=== PATIENT | male | born 1970 | race Caucasian/White ===

== ENCOUNTER 2017-09-24 09:59 | Observation (INO) | payer SELFPAY ==
[~2017-09-24] VITALS: Ht 185.4 cm; Wt 127.0 kg
[2017-09-24] VITALS (11 sets, daily range): BP systolic 121–181; BP diastolic 69–95; PULSE 49–90; RESP 18–22; TEMP 98.1–98.9; O2SAT 95–99
--- NOTE | 2017-09-24 11:21 | RADRPT ---
EXAM DATE/TIME: 09/24/2017 10:55 [place] COMPARISON: No previous studies available for comparison. INDICATIONS : Shortness of breath, cough, and chest pain. MEDICAL HISTORY : Smoker. SURGICAL HISTORY : None. ENCOUNTER: Initial ACUITY: 1 day PAIN SCORE: 0/10 LOCATION: Bilateral chest FINDINGS: PA and lateral views of the chest demonstrate the lungs to be symmetrically aerated without evidence of mass, infiltrate or effusion. Cardiac silhouette is mildly prominent left ventricular configurati on.. Osseous structures are intact. CONCLUSION: Mildly prominent cardiac silhouette without infiltrate or failure. Alvino Patel MD FACR on September 24, 2017 at 11:07 Board Certified Radiologist. This report was verified electronically.
[2017-09-24] MEDS: NITROGLYCERIN 0.4 MG SL 25 TABS/BTL SL SCH ×3 (11:26→11:40)
[2017-09-24] MEDS ORDERED: MORPHINE SULFATE 4 MG/ML INJ IV PUSH ONE (11:30)
[2017-09-24] MEDS ORDERED: SODIUM CHLORID 0.9% 500 ML INJ 500 ML IV ONE (11:30)
[2017-09-24] MEDS ORDERED: ASPIRIN 81 MG CHEW TAB PO ONE (11:30)
[2017-09-24] MEDS ORDERED: SODIUM CHLORIDE 0.9% FLUSH 10 ML FLUSH IVF PRN (11:30)
--- NOTE | 2017-09-24 11:54 | PD ---
HPI Chief Complaint: Chest Pain Time Seen by Provider: 11:14 Travel History International Travel<30 days: No Contact w/Intl Traveler<30days: No Traveled to known affect area: No History of Present Illness HPI 47-year-old male presents the emergency department with 3 day history of substernal chest discomfort, tightness, radiating into his back. Patient also facial pain, different than typical sinus pressure. He states the pain is been fairly consistent for the last 3 days. He denies fever, chills, but has had some cough. He denies sore throat or ear pain. No nausea vomiting or diarrhea. Patient does smoke occasionally maybe 2 packs every 2 weeks.. He denies significant alcohol use. He has no previous cardiac history. He does not take aspirin or other medications. Patient denies specific changes in his discomfort with exertion or food intake. His current pain is about a 6/10. He has no known drug allergies. PFSH Past Medical History Hypertension: Yes Social History Alcohol Use: No Tobacco Use: Yes Substance Use: No Allergies-Medications (Allergen,Severity, Reaction): Coded Allergies: No Known Allergies (Unverified , 09/24/17) Reported Meds & Prescriptions Reported Meds & Active Scripts Active No Active Prescriptions or Reported Medications Review of Systems Except as stated in HPI: all other systems reviewed are Neg General / Constitutional: No: Fever, Chills Eyes: No: Visual changes HENT: No: Headaches Cardiovascular: Positive: Chest Pain or Discomfort, Dyspnea on exertion, No: Palpitations, Irregular Rhythm, Tachycardia, Syncope, Varicosities (in the last 3 days.), Edema, Cyanosis, Varicosities, Phlebitis, Claudication Respiratory: Positive: Cough, No: Shortness of Breath, Wheezing, Orthopnea, Hemoptysis Gastrointestinal: No: Nausea, Vomiting, Diarrhea, Abdominal Pain Genitourinary: No: Dysuria Musculoskeletal: No: Pain Skin: No Rash Neurologic: No: Weakness Psychiatric: No: Depression Endocrine: No: Polydipsia Hematologic/Lymphatic: No: Easy Bruising Physical Exam Narrative GENERAL: Patient appears in no obvious distress. SKIN: Warm and dry. Normal color. Normal turgor. No diaphoresis. HEAD: Atraumatic. Normocephalic. EYES: Pupils equal and round. No scleral icterus. No injection or drainage. ENT: No nasal bleeding or discharge. Mucous membranes pink and moist. TMs are clear bilaterally. No significant sinus discharge or tenderness with palpation or percussion. Posterior pharynx appears unremarkable. Airway is patent. NECK: Trachea midline. No JVD. Neck is supple nontender. CARDIOVASCULAR: Regular rate and rhythm. No murmurs gallops or rubs appreciated. RESPIRATORY: No accessory muscle use. Clear to auscultation. Breath sounds equal bilaterally. GASTROINTESTINAL: Abdomen soft, non-tender, nondistended. Hepatic and splenic margins not palpable. MUSCULOSKELETAL: Extremities without clubbing, cyanosis, or edema. No obvious deformities. NEUROLOGICAL: Awake and alert. No obvious cranial nerve deficits. Motor grossly within normal limits. Five out of 5 muscle strength in the arms and legs. Normal speech. PSYCHIATRIC: Appropriate mood and affect; insight and judgment normal. Data Data Last Documented VS Vital Signs Date Time Temp Pulse Resp B/P (MAP) Pulse Ox O2 Delivery O2 Flow Rate FiO2 09/24/17 11:31 75 19 156/73 (100) 99 09/24/17 11:16 Room Air 09/24/17 10:00 98.8 Orders Orders Electrocardiogram (09/24/17 ) Complete Blood Count With Diff (09/24/17 10:43) Ckmb (Isoenzyme) Profile (09/24/17 10:43) Troponin I (09/24/17 10:43) Iv Access Insert/Monitor (09/24/17 10:43) Ecg Monitoring (09/24/17 10:43) Oxygen Administration (09/24/17 10:43) Oximetry (09/24/17 10:43) Chest, Pa & Lat (09/24/17 10:43) B-Type Natriuretic Peptide (09/24/17 11:17) Ckmb (Isoenzyme) Profile (09/24/17 11:17) Comprehensive Metabolic Panel (09/24/17 11:17) Magnesium (Mg) (09/24/17 11:17) Prothrombin Time / Inr (Pt) (09/24/17 11:17) Act Partial Throm Time (Ptt) (09/24/17 11:17) Troponin I (09/24/17 11:17) Bilateral Bp Monitoring (09/24/17 11:17) Aspirin Chew (Aspirin Chew) (09/24/17 11:30) Morphine Inj (Morphine Inj) (09/24/17 11:30) Sodium Chloride 0.9% Flush (Ns Flush) (09/24/17 11:30) Nitroglycerin Sl (Nitrostat Sl) (09/24/17 11:30) Sodium Chlorid 0.9% 500 Ml Inj (Ns 500 M (09/24/17 11:30) CKMB (09/24/17 11:35) CKMB% (09/24/17 11:35) Admit Order (Ed Use Only) (09/24/17 12:50) Labs Laboratory Tests Test 09/24/17 11:35 White Blood Count 8.4 TH/MM3 Red Blood Count 4.66 MIL/MM3 Hemoglobin 14.0 GM/DL Hematocrit 42.3 % Mean Corpuscular Volume 90.7 FL Mean Corpuscular Hemoglobin 30.1 PG Mean Corpuscular Hemoglobin Concent 33.2 % Red Cell Distribution Width 13.2 % Platelet Count 254 TH/MM3 Mean Platelet Volume 9.0 FL Neutrophils (%) (Auto) 60.6 % Lymphocytes (%) (Auto) 28.0 % Monocytes (%) (Auto) 9.7 % Eosinophils (%) (Auto) 1.1 % Basophils (%) (Auto) 0.6 % Neutrophils # (Auto) 5.1 TH/MM3 Lymphocytes # (Auto) 2.4 TH/MM3 Monocytes # (Auto) 0.8 TH/MM3 Eosinophils # (Auto) 0.1 TH/MM3 Basophils # (Auto) 0.0 TH/MM3 CBC Comment DIFF FINAL Differential Comment Prothrombin Time 10.0 SEC Prothromb Time International Ratio 1.0 RATIO Activated Partial Thromboplast Time 27.1 SEC Blood Urea Nitrogen 15 MG/DL Creatinine 1.15 MG/DL Random Glucose 94 MG/DL Total Protein 7.6 GM/DL Albumin 3.8 GM/DL Calcium Level 8.9 MG/DL Magnesium Level 2.1 MG/DL Alkaline Phosphatase 101 U/L Aspartate Amino Transf (AST/SGOT) 17 U/L Alanine Aminotransferase (ALT/SGPT) 26 U/L Total Bilirubin 0.4 MG/DL Sodium Level 139 MEQ/L Potassium Level 3.8 MEQ/L Chloride Level 104 MEQ/L Carbon Dioxide Level 27.1 MEQ/L Anion Gap 8 MEQ/L Estimat Glomerular Filtration Rate 68 ML/MIN Total Creatine Kinase 112 U/L Creatine Kinase MB 0.9 NG/ML Troponin I LESS THAN 0.02 NG/ML B-Type Natriuretic Peptide 8 PG/ML MDM Medical Decision Making Medical Screen Exam Complete: Yes Emergency Medical Condition: Yes Medical Record Reviewed: Yes Differential Diagnosis Atypical chest pain. Esophageal spasm. Cardiac syndrome. Non-STEMI. Narrative Course Patient is medically stable at time of exam. Labs ordered including CBC, CMP, cardiac panel, and EKG chest x-ray ordered. IV access is obtained patient is given 2 mg morphine IV. Patient is given 324 mg aspirin by mouth. Patient is given nitroglycerin 0.4 mg sublingual 3 with improvement of his symptoms. Patient is reassessed after medications and found to have pain described as 1/ 10 down from 6/10. Labs show unremarkable CBC, coagulations normal. CMP shows no significant findings. First troponin is 0.02. Chest x-ray is unremarkable per radiologist. Discussed findings with the patient and recommended admission to the chest pain center for further observation and workup per cardiology consult. Patient agrees. Patient admitted to the chest pain center. Diagnosis Primary Impression: Chest pain at rest Admitting Information Admitting Physician Requests: Observation Scripts No Active Prescriptions or Reported Meds Condition: Stable Amol Armas Sep 24, 2017 11:54
[2017-09-24 12:07] LABS: AUTOMATED NEUTROPHIL # 5.1 TH/MM3 (1.8-7.7); BASOPHIL % 0.6 % (0.0-2.0); EOSINOPHIL # 0.1 TH/MM3 (0-0.4); EOSINOPHIL % 1.1 % (0.0-4.0); HEMATOCRIT 42.3 % (39.0-51.0); LYMPHOCYTE # 2.4 TH/MM3 (1.0-4.8); MEAN CELL VOLUME 90.7 FL (80.0-100.0); MEAN CORPUSCULAR HEMOGLOBIN 30.1 PG (27.0-34.0); MEAN CORPUSCULAR HGB CONC 33.2 % (32.0-36.0); MONO % 9.7 % (0.0-8.0); MONOCYTE # 0.8 TH/MM3 (0-0.9); NEUT % 60.6 % (16.0-70.0); PLATELET COUNT 254 TH/MM3 (150-450); RED BLOOD COUNT 4.66 MIL/MM3 (4.50-5.90); RED CELL DISTRIBUTION WIDTH 13.2 % (11.6-17.2); WHITE BLOOD COUNT 8.4 TH/MM3 (4.0-11.0)
[2017-09-24 12:32] LABS: ALBUMIN 3.8 GM/DL (3.4-5.0); AST (GOT) 17 U/L (15-37); BICARBONATE 27.1 MEQ/L (21.0-32.0); CALCIUM 8.9 MG/DL (8.5-10.1); CHLORIDE 104 MEQ/L (98-107); CREATININE 1.15 MG/DL (0.60-1.30); GLOMERULAR FILTRATION RATE 68 ML/MIN (>89); MAGNESIUM 2.1 MG/DL (1.5-2.5); SODIUM (NA) 139 MEQ/L (136-145)
[2017-09-24 12:35] LABS: BLOOD UREA NITROGEN 15 MG/DL (7-18); GLUCOSE,RANDOM 94 MG/DL (74-106)
[2017-09-24 12:46] LABS: ALKALINE PHOSPHATASE 101 U/L (45-117); ALT (GPT) 26 U/L (12-78); TOTAL BILIRUBIN ADULT 0.4 MG/DL (0.2-1.0); TOTAL PROTEIN 7.6 GM/DL (6.4-8.2); TROPONIN I LESS THAN 0.02 NG/ML (0.02-0.05)
[2017-09-24] MEDS ORDERED: ACETAMINOPHEN 500 MG CPLT PO PRN (13:30)
[2017-09-24] MEDS ORDERED: ONDANSETRON HCL 4 MG/2 ML VIAL IV PUSH PRN (13:30)
[2017-09-24] MEDS ORDERED: NITROGLYCERIN 0.4 MG SL 25 TABS/BTL SL PRN (13:30)
[2017-09-24 15:41] LABS: TROPONIN I LESS THAN 0.02 NG/ML (0.02-0.05)
--- NOTE | 2017-09-24 16:42 | HHI.HP ---
HPI Primary Care Physician No Primary Care Physician Chief Complaint Dyspnea and chest pressure History of Present Illness 47-year-old male without past medical history presents to emergency room for further evaluation of dyspnea and chest pressure. Onset 3 days ago. Location substernal. No radiation. Characterized as pressure and "feels like I can't take a deep breath." Duration constant 3 days. No associated symptoms of nausea, vomiting, or diaphoresis. Does not necessarily hurt to take a deep breath. No known precipitating or relieving factors. Endorses currently he is under a lot of work related stress. Denies similar pain in the past. Current non productive cough. Review of Systems General: No fatigue,weakness, fever, chills, recent illness HEENT: No PERDOMO, no vision changes, no nasal congestion or drainage, no dysphasia CV: Continues to have chest pressure as stated above. No palpitations. Chest pressure not made worse with exertion. RESP: Feels like "I cannot take a deep breath." Dyspnea made worse after walking long distances. 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 Current nonproductive cough. No wheeze. Current smoker. GI: No nausea, vomiting, or bowel changes. No unintentional weight gain or weight loss : No dysuria, urgency, frequency EXT: No lower leg edema, no paraesthesias MS: No discomfort or change in ROM, no recent injury, trauma NEURO: No change in memory, LOC, motor/sensory deficits PSYCH: No anxiety or depression. Endorses current situational work-related stress. SKIN: No rashes, no concerning lesions Past Family Social History Allergies: Coded Allergies: No Known Allergies (Unverified , 09/24/17) Past Medical History None Reported Medications Reported Meds & Active Scripts Active No Active Prescriptions or Reported Medications Active Ordered Medications Current Medications Medications (Trade) Dose Ordered Sig/Gavin Route Start Time Stop Time Status Last Admin (NS Flush) 2 ml UNSCH PRN IVF 09/24/17 11:30 (NS Flush) 2 ml BID IV FLUSH 09/24/17 21:00 (Tylenol) 500 mg Q4H PRN PO 09/24/17 13:30 (Zofran Inj) 4 mg Q6H PRN IV PUSH 09/24/17 13:30 (Nitrostat Sl) 0.4 mg Q5M PRN SL 09/24/17 13:30 09/24/17 14:25 (Aspirin) 325 mg DAILY PO 09/25/17 09:00 Family History Noncontributory for early onset cardiovascular disease. Social History No known hypertension, hyperlipidemia, or diabetes. Current smoker one pack cigarettes/2-3weeks. Occasional alcohol. 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 Past cardiac testing None Physical Exam Vital Signs Vital Signs Date Time Temp Pulse Resp B/P (MAP) Pulse Ox O2 Delivery O2 Flow Rate FiO2 09/24/17 15:13 09/24/17 14:28 70 22 147/69 (95) 99 Room Air 09/24/17 13:00 64 20 141/72 (95) 99 Room Air 09/24/17 11:31 75 19 156/73 (100) 99 09/24/17 11:16 70 18 99 Room Air 09/24/17 11:15 99 Room Air 09/24/17 11:15 99 Room Air 09/24/17 10:00 98.8 82 20 167/91 (116) 98 Room Air Physical Exam GENERAL: Alert WN, WD, NAD, pleasant, male HEAD: NC, AT NECK: Supple, no masses, trachea midline CV: RRR, without murmur, rub, gallop, no JVD, S1-S2 no S3-S4. RESP: Clear lungs throughout bilateral, no crackles, wheeze, rhonchi, symmetrical chest rise, nonlabored, able to speak in full sentences ABD: Soft, NT, ND, no masses, positive bowel tones EXT: Pulses +24, no dependent edema MS: Normal tone 4 extremities, nontender, no obvious deformities, full range of motion NEURO: CN II through CN XII grossly intact, motor strength 5/5 PSYCH: A+O 3, pleasant affect, appropriate speech, mood, insight and judgment SKIN: Normal turgor, normal texture, no lesions, no rashes, brisk cap refill, even hair distribution, multiple tattoos Laboratory Laboratory Tests Test 09/24/17 11:35 09/24/17 15:03 White Blood Count 8.4 Red Blood Count 4.66 Hemoglobin 14.0 Hematocrit 42.3 Mean Corpuscular Volume 90.7 Mean Corpuscular Hemoglobin 30.1 Mean Corpuscular Hemoglobin Concent 33.2 Red Cell Distribution Width 13.2 Platelet Count 254 Mean Platelet Volume 9.0 Neutrophils (%) (Auto) 60.6 Lymphocytes (%) (Auto) 28.0 Monocytes (%) (Auto) 9.7 Eosinophils (%) (Auto) 1.1 Basophils (%) (Auto) 0.6 Neutrophils # (Auto) 5.1 Lymphocytes # (Auto) 2.4 Monocytes # (Auto) 0.8 Eosinophils # (Auto) 0.1 Basophils # (Auto) 0.0 CBC Comment DIFF FINAL Differential Comment Prothrombin Time 10.0 Prothromb Time International Ratio 1.0 Activated Partial Thromboplast Time 27.1 Blood Urea Nitrogen 15 Creatinine 1.15 Random Glucose 94 Total Protein 7.6 Albumin 3.8 Calcium Level 8.9 Magnesium Level 2.1 Alkaline Phosphatase 101 Aspartate Amino Transf (AST/SGOT) 17 Alanine Aminotransferase (ALT/SGPT) 26 Total Bilirubin 0.4 Sodium Level 139 Potassium Level 3.8 Chloride Level 104 Carbon Dioxide Level 27.1 Anion Gap 8 Estimat Glomerular Filtration Rate 68 Total Creatine Kinase 112 103 Creatine Kinase MB 0.9 0.7 Troponin I LESS THAN 0.02 LESS THAN 0.02 B-Type Natriuretic Peptide 8 Result Diagram: 09/24/17 1135 09/24/17 1135 Imaging Last 48 hours Impressions Chest X-Ray 09/24/17 1043 Signed Impressions: Service Date/Time: Sunday, September 24, 2017 10:55 - CONCLUSION: Mildly prominent cardiac silhouette without infiltrate or failure. Alvino Patel MD FACR Course EKG Normal sinus rhythm, normal axis, T-wave inversions inferiorly, no ST changes Caprini VTE Risk Assessment Caprini VTE Risk Assessment: No/Low Risk (score <= 1) Caprini Risk Assessment Model Point Value = 1 Point Value = 2 Point Value = 3 Point Value = 5 Age 41-60 Minor surgery BMI > 25 kg/m2 Swollen legs Varicose veins or History of unexplained or recurrent spontaneous Oral contraceptives or hormone replacement Sepsis (< 1 month) Serious lung disease, including pneumonia (< 1 month) Abnormal pulmonary function Acute myocardial infarction Congestive heart failure (< 1 month) History of inflammatory bowel disease Medical patient at bed rest Age 61-74 Arthroscopic surgery Major open surgery (> 45 min) Laparoscopic surgery (> 45 min) Malignancy Confined to bed (> 72 hours) Immobilizing plaster cast Central venous access Age >= 75 History of VTE Family history of VTE Factor V Leiden Prothrombin [id number] Lupus anticoagulant Anticardiolipin antibodies Elevated serum homocysteine Heparin-induced thrombocytopenia Other congenital or acquired thrombophilia Stroke (< 1 month) Elective arthroplasty Hip, pelvis, or leg fracture Acute spinal cord injury (< 1 month) Prophylaxis Regimen Total Risk Factor Score Risk Level Prophylaxis Regimen 0-1 Low Early ambulation 2 Moderate Order ONE of the following: *Sequential Compression Device (SCD) *Heparin 5000 units SQ BID 3-4 Higher Order ONE of the following medications: *Heparin 5000 units SQ TID *Enoxaparin/Lovenox 40 mg SQ daily (WT < 150 kg, CrCl > 30 mL/min) *Enoxaparin/Lovenox 30 mg SQ daily (WT < 150 kg, CrCl > 10-29 mL/min) *Enoxaparin/Lovenox 30 mg SQ BID (WT < 150 kg, CrCl > 30 mL/min) AND/OR *Sequential Compression Device (SCD) 5 or more Highest Order ONE of the following medications: *Heparin 5000 units SQ TID (Preferred with Epidurals) *Enoxaparin/Lovenox 40 mg SQ daily (WT < 150 kg, CrCl > 30 mL/min) *Enoxaparin/Lovenox 30 mg SQ daily (WT < 150 kg, CrCl > 10-29 mL/min) *Enoxaparin/Lovenox 30 mg SQ BID (WT < 150 kg, CrCl > 30 mL/min) AND *Sequential Compression Device (SCD) Assessment and Plan Assessment and Plan #1 Atypical chest pain-admitted chest pain center. Rule out with 3 sets of EKGs , cardiac enzymes, and monitored overnight. Seen and evaluated by Dr. Carlos Cantrell. Stat d-dimer. If d-dimer and serial cardiac protocol, plan to proceed with exercise stress in a.m. Naturally if unremarkable, plan to discharge home with follow-up with PCP. Patient agreeable to plan of care. Will order started to quit smoking. Respiratory treatment x1 dose now due to complaint of feelings of not being able to take a deep breath, although lung sounds are clear, does not appear to be in distress, and spo2 maintained on roomair. #2 Tobacco use-shined encouraged and stressed the importance of tobacco cessation. Nyla Li Sep 24, 2017 16:42
[2017-09-24] MEDS ORDERED: RESP: ALBUTEROL 2.5 MG/3 ML NEB (SCH) NEB ONE (17:00)
[2017-09-24] MEDS ORDERED: RESP: ALBUTEROL 2.5 MG/3 ML NEB (PRN) NEB (17:00)
[2017-09-24 18:14] LABS: TROPONIN I LESS THAN 0.02 NG/ML (0.02-0.05)
--- NOTE | 2017-09-24 20:51 | EKG ---
Date Performed: 09/24/2017 Time Performed: 10:16:54 PTAGE: 47 years EKG: Sinus rhythm NORMAL ECG NO PREVIOUS TRACING DOCTOR: Ramsey Granger Interpretating Date/Time 09/24/2017 20:50:39
[2017-09-24] MEDS: SODIUM CHLORIDE 0.9% FLUSH 10 ML FLUSH IV FLUSH SCH (20:53)
[2017-09-25 03:22] VITALS: BP 121/67; PULSE 67; RESP 18; TEMP 97.9; O2SAT 96
[2017-09-25 04:19] VITALS: PULSE 62
[2017-09-25] MEDS: SODIUM CHLORIDE 0.9% FLUSH 10 ML FLUSH IV FLUSH SCH (07:59)
[2017-09-25] MEDS ORDERED: ASPIRIN 325 MG TAB PO SCH (09:00)
[2017-09-25 09:04] VITALS: BP 130/87; PULSE 70; RESP 18; TEMP 97; O2SAT 97
--- NOTE | 2017-09-25 10:14 | HHI.DCPOC ---
Discharge Care Plan Diagnosis: (1) Chest pain (2) Tobacco abuse Goals to Promote Your Health * To prevent worsening of your condition and complications * To maintain your health at the optimal level Directions to Meet Your Goals Take your medications as prescribed Follow your dietary instruction Follow activity as directed Keep your appointments as scheduled Take your immunizations and boosters as scheduled If your symptoms worsen call your PCP, if no PCP go to Urgent Care Center or Emergency Room Smoking is Dangerous to Your Health. Avoid second hand smoke Call the 24-hour hour crisis hotline for domestic abuse at Alex Higuera Sep 25, 2017 10:14
--- NOTE | 2017-09-26 15:55 | EKG ---
Date Performed: 09/24/2017 Time Performed: 18:39:34 PTAGE: 47 years EKG: Sinus rhythm WITH SINUS ARRHYTHMIA NORMAL ECG PREVIOUS TRACING : 09/24/2017 14.35 Since previous tracing, no significant change noted DOCTOR: Carlos Cantrell Interpretating Date/Time 09/26/2017 15:53:47
--- NOTE | 2017-09-26 15:58 | EKG ---
Date Performed: 09/24/2017 Time Performed: 14:35:40 PTAGE: 47 years EKG: Sinus rhythm NORMAL ECG PREVIOUS TRACING : 09/24/2017 10.16 Since previous tracing, no significant change noted DOCTOR: Carlos Cantrell Interpretating Date/Time 09/26/2017 15:57:12
--- NOTE | 2017-09-26 16:11 | TR ---
Date Performed: 09/25/2017 Time Performed: 09:43:54 DOCTOR: Carlos Cantrell DRUG LIST: CLINICAL HISTORY: REASON FOR TEST: REASON FOR ENDING: OBSERVATION: CONCLUSION: ANGUS PROTOCOL. NO CP. TEST STOPPED AFTER EXCEEDING GOAL HR SECONDARY TO SOB AND LEG FATIGUE.Maximum TP=714 % Max HR Achieved=91.0% Maximum LB=330/84 Total Exercise Time=8:00 COMMENTS: Patient exercised using the Angus protocol. No electrocardiographic changes were seen to suggest ischemia. Hemodynamic response to exercise was normal. No significant arrhythmia was prese nt.
== END 2017-09-25 10:52 | disposition home or self-care (01) ==
LOC: NEPC 09:59 → NEDA 12:52 → NEPHCDU 15:21
PROVIDERS: ADMIT Internal Medicine Cardiovascular Disease; ATTEND Internal Medicine Cardiovascular Disease
DX: R07.89 Other chest pain (principal); R06.00 Dyspnea, unspecified; R05 Cough; R06.02 Shortness of breath; I49.9 Cardiac arrhythmia, unspecified; R51 Headache; I10 Essential (primary) hypertension; F17.200 Nicotine dependence, unspecified, uncomplicated
CPT/HCPCS: 71046; 80053; 82550; 82552; 83735; 83880; 84484; 85025; 85379; 85610; 85730; 93005; 93017; 94664; 96360; 99285; G0378; J7040; J7613